=== PATIENT | male | born 1955 | race Caucasian/White ===

== ENCOUNTER 2025-02-15 06:52 | Inpatient (IN) | payer OTHER ==
[2025-02-15 07:29] LABS: #Basophils 0.04 10x3/uL (0.0-0.2); #Eosinophils 0.05 10x3/uL (0.0-0.5); #Monocytes 0.50 10x3/uL (0.0-1.1); #Neutrophils 6.30 10x3/uL (1.5-8.4); %Basophils 0.5 % (0.0-2.0); %Eosinophils 0.7 % (0.0-6.0); %Lymphocytes 6.9 % (18.0-47.0); %Monocytes 6.7 % (0.0-10.0); %Neutrophils 84.8 % (40.0-75.0); Hematocrit 36.9 % (38.8-50.0); Hemoglobin 12.0 g/dL (13.5-17.5); Mean Corpuscular Hemoglobin 30.9 pg (27.0-33.0); Mean Corpuscular Volume 95.1 fL (81.2-95.1); Platelet Count 161 10x3/uL (150-450); Red Blood Cell (RBC) Count 3.88 10x6/uL (4.32-5.72); White Blood Cell (WBC) Count 7.43 10x3/uL (3.5-10.5)
[2025-02-15] MEDS ORDERED: Furosemide 40 MG (4 mL) VIAL ONE (07:32)
[2025-02-15 08:02] LABS: Troponin I 0.134 ng/mL (< 0.028)
[2025-02-15 08:06] LABS: ALT (SGPT) 119 U/L (Less than 45); AST (SGOT) 157 U/L (11-34); Albumin 3.3 g/dL (3.1-4.5); Alkaline Phosphatase 165 U/L (40-110); Anion Gap 16 mmol/L (10-20); BUN (Urea Nitrogen) 37 mg/dL (8.4-25.7); Bilirubin, Total 0.8 mg/dL (0.3-1.2); Calc. Creatinine Clearance 0 mL/min (70-130); Calcium 8.6 mg/dL (7.8-10.44); Carbon Dioxide 24 mmol/L (23-31); Chloride 98 mmol/L (98-107); Globulin 2.6 g/dL (2.4-3.5); Sodium 131 mmol/L (136-145)
[2025-02-15 08:14] LABS: Glucose 451 mg/dL (80-115); Potassium 6.5 mmol/L (3.5-5.1)
[2025-02-15] MEDS ORDERED: cefTRIAXone (ROCEPHIN) 1 GM VIAL ONE (08:26)
[2025-02-15] MEDS ORDERED: Albuterol 2.5 MG (3 mL) NEB ONE (08:40)
[2025-02-15 08:49] LABS: Potassium 5.0 mmol/L (3.5-5.1)
[2025-02-15] MEDS ORDERED: Acetaminophen 325 MG TAB PO PRN (11:29)
[2025-02-15] MEDS ORDERED: Melatonin 3 MG TAB PO PRN (11:29)
[2025-02-15] MEDS ORDERED: Ondansetron PF 4 MG/2 ML Vial IVP PRN (11:29)
[2025-02-15] MEDS ORDERED: Electrolyte Replacement Protocol 1 EACH FS PRN (11:30)
[2025-02-15] MEDS ORDERED: Glucagon 1 MG/ML KIT IM PRN (11:35)
[2025-02-15] MEDS ORDERED: Dextrose 50% Abboject 50 ML SYRINGE SLOW IVP PRN (11:35)
[2025-02-15] MEDS: Furosemide 40 MG (4 mL) VIAL SLOW IVP SCH (14:51)
[2025-02-15 16:23] LABS: Anion Gap 12 mmol/L (10-20); BUN (Urea Nitrogen) 36 mg/dL (8.4-25.7); Calc. Creatinine Clearance 52 mL/min (70-130); Calcium 9.4 mg/dL (7.8-10.44); Carbon Dioxide 29 mmol/L (23-31); Chloride 96 mmol/L (98-107); Potassium 5.0 mmol/L (3.5-5.1); Sodium 132 mmol/L (136-145)
[2025-02-15 16:31] LABS: Troponin I 0.200 ng/mL (< 0.028)
[2025-02-15 16:43] LABS: Glucose 421 mg/dL (80-115)
[2025-02-15] MEDS: Lantus 1000 UNITS/10 ML VIAL SC SCH (17:10)
[2025-02-16 05:36] LABS: #Basophils 0.04 10x3/uL (0.0-0.2); #Eosinophils 0.08 10x3/uL (0.0-0.5); #Monocytes 0.51 10x3/uL (0.0-1.1); #Neutrophils 6.28 10x3/uL (1.5-8.4); %Basophils 0.5 % (0.0-2.0); %Eosinophils 1.0 % (0.0-6.0); %Lymphocytes 12.5 % (18.0-47.0); %Monocytes 6.4 % (0.0-10.0); %Neutrophils 79.2 % (40.0-75.0); Hematocrit 39.2 % (38.8-50.0); Hemoglobin 12.7 g/dL (13.5-17.5); Mean Corpuscular Hemoglobin 30.0 pg (27.0-33.0); Mean Corpuscular Volume 92.7 fL (81.2-95.1); Platelet Count 166 10x3/uL (150-450); Red Blood Cell (RBC) Count 4.23 10x6/uL (4.32-5.72); White Blood Cell (WBC) Count 7.93 10x3/uL (3.5-10.5)
[2025-02-16 05:54] LABS: ALT (SGPT) 87 U/L (Less than 45); AST (SGOT) 63 U/L (11-34); Albumin 3.3 g/dL (3.1-4.5); Alkaline Phosphatase 135 U/L (40-110); Anion Gap 17 mmol/L (10-20); BUN (Urea Nitrogen) 33 mg/dL (8.4-25.7); Bilirubin, Total 1.0 mg/dL (0.3-1.2); Calc. Creatinine Clearance 59 mL/min (70-130); Calcium 9.3 mg/dL (7.8-10.44); Carbon Dioxide 27 mmol/L (23-31); Chloride 99 mmol/L (98-107); Globulin 3.0 g/dL (2.4-3.5); Glucose 55 mg/dL (80-115); Magnesium 2.1 mg/dL (1.6-2.6); Potassium 4.2 mmol/L (3.5-5.1); Sodium 139 mmol/L (136-145)
[2025-02-16] MEDS ORDERED: Lantus 1000 UNITS/10 ML VIAL SC SCH ×2 (09:00)
[2025-02-16 09:08] LABS: Troponin I 0.142 ng/mL (< 0.028)
[2025-02-16] MEDS: Lantus 1000 UNITS/10 ML VIAL SC SCH ×2 (09:42→21:28)
[2025-02-16] MEDS: Amiodarone 200 MG TAB PO SCH (09:43)
[2025-02-16] MEDS: Ferrous Sulfate 325 MG TAB PO SCH (09:43)
[2025-02-16] MEDS: Aspirin 81 mg Enteric Coated Tablet PO SCH (09:43)
[2025-02-16 14:33] LABS: Free T4 (Free Thyroxine) 1.05 ng/dL (0.70-1.48); Thyroid Stimulating Hormone 23.8571 uIU/mL (0.35-4.94)
[2025-02-17 04:52] LABS: Anion Gap 12 mmol/L (10-20); BUN (Urea Nitrogen) 31 mg/dL (8.4-25.7); Calc. Creatinine Clearance 67 mL/min (70-130); Calcium 8.9 mg/dL (7.8-10.44); Carbon Dioxide 30 mmol/L (23-31); Cardiac Risk 2.3 (Less than 4.5); Chloride 99 mmol/L (98-107); Cholesterol 108 mg/dl (< 200 Desired); Glucose 201 mg/dL (80-115); HDL Cholesterol 47 mg/dL (>60 Neg Risk); Iron 54 ug/dL (65-175); Iron Binding Capacity, Total 256 mcg/dL (261-462); LDL Cholesterol, Calculated 52 mg/dL; Potassium 4.6 mmol/L (3.5-5.1); Sodium 136 mmol/L (136-145); Triglycerides 45 mg/dL (Less than 150)
[2025-02-17] MEDS: SODIUM CHLORIDE 0.9% IVPB SCH (09:26)
[2025-02-17] MEDS: SODIUM FERRIC GLUCONATE IVPB SCH (09:26)
[2025-02-17] MEDS: Furosemide 40 MG TAB PO SCH ×2 (09:26→21:22)
[2025-02-17] MEDS ORDERED: KETAMINE 100 MG/ML (5ML VIAL) ONE (15:50)
[2025-02-17] MEDS ORDERED: Lidocaine 1% PF 5 ML VIAL ONE (15:50)
[2025-02-17] MEDS ORDERED: Glycopyrrolate 0.2 MG/ML 5 ML SYRINGE ONE (15:50)
[2025-02-17] MEDS ORDERED: PHENYLEPHRINE-NS 100 MCG/ML 10 ML SYRINGE ONE (15:50)
[2025-02-17] MEDS ORDERED: PROPOFOL 200 MG/20 ML VIAL ONE (18:38)
[2025-02-17] MEDS ORDERED: Bupivacaine/Epinephrine 0.25% 30 ML VIAL ONE (19:16)
[2025-02-17] MEDS ORDERED: SUGAMMADEX SODIUM 200 MG/2 ML VIAL ONE (19:26)
[2025-02-17 20:58] LABS: ALT (SGPT) 55 U/L (Less than 45); AST (SGOT) 30 U/L (11-34); Albumin 3.5 g/dL (3.1-4.5); Alkaline Phosphatase 144 U/L (40-110); Bilirubin, Direct 0.7 mg/dL (0.1-0.3); Bilirubin, Total 1.5 mg/dL (0.3-1.2)
[2025-02-17] MEDS ORDERED: Vancomycin 1 GM in Premix 1 BAG IVPB SCH (21:00)
[2025-02-17] MEDS: Enoxaparin 80 MG (0.8 mL) SYRINGE SC SCH (21:22)
[2025-02-17] MEDS: Lantus 1000 UNITS/10 ML VIAL SC SCH (21:37)
[2025-02-17] MEDS: VANCOMYCIN 2 GRAM/400 ML BAG 2 GM in Premix 1 BAG IVPB SCH ×2 (21:45→21:50)
[2025-02-18 04:51] VITALS: BMI 23.3
[2025-02-18 05:15] LABS: Vancomycin, Random 27.4 ug/mL (See Comment)
[2025-02-18 05:36] LABS: ALT (SGPT) 53 U/L (Less than 45); AST (SGOT) 31 U/L (11-34); Albumin 3.6 g/dL (3.1-4.5); Alkaline Phosphatase 143 U/L (40-110); Anion Gap 21 mmol/L (10-20); BUN (Urea Nitrogen) 24 mg/dL (8.4-25.7); Bilirubin, Total 2.9 mg/dL (0.3-1.2); Calc. Creatinine Clearance 59 mL/min (70-130); Calcium 10.0 mg/dL (7.8-10.44); Carbon Dioxide 28 mmol/L (23-31); Chloride 95 mmol/L (98-107); Globulin 3.5 g/dL (2.4-3.5); Glucose 147 mg/dL (80-115); Iron 106 ug/dL (65-175); Iron Binding Capacity, Total 284 mcg/dL (261-462); Potassium 4.5 mmol/L (3.5-5.1); Sodium 139 mmol/L (136-145)
[2025-02-18] MEDS: Spironolactone 25 MG TAB PO SCH (08:48)
[2025-02-18] MEDS: Losartan 25 MG TAB PO SCH (08:48)
[2025-02-18] MEDS: Metoprolol Succinate XL 25 MG ER.TAB PO SCH (08:48)
[2025-02-18] MEDS ORDERED: Vancomycin 1.5 GRAM/300 ML BAG 1.5 GM in Premix 1 BAG IVPB SCH (09:00)
[2025-02-18] MEDS: VANCOMYCIN 1.25 GM/250 ML BAG 1.25 GM in Premix 1 BAG IVPB SCH (12:40)
[2025-02-19 04:06] LABS: #Basophils 0.06 10x3/uL (0.0-0.2); #Eosinophils 0.12 10x3/uL (0.0-0.5); #Monocytes 0.68 10x3/uL (0.0-1.1); #Neutrophils 5.10 10x3/uL (1.5-8.4); %Basophils 0.9 % (0.0-2.0); %Eosinophils 1.8 % (0.0-6.0); %Lymphocytes 9.1 % (18.0-47.0); %Monocytes 10.4 % (0.0-10.0); %Neutrophils 77.6 % (40.0-75.0); Hematocrit 40.3 % (38.8-50.0); Hemoglobin 13.5 g/dL (13.5-17.5); Mean Corpuscular Hemoglobin 30.6 pg (27.0-33.0); Mean Corpuscular Volume 91.4 fL (81.2-95.1); Platelet Count 214 10x3/uL (150-450); Red Blood Cell (RBC) Count 4.41 10x6/uL (4.32-5.72); White Blood Cell (WBC) Count 6.57 10x3/uL (3.5-10.5)
[2025-02-19 04:27] LABS: ALT (SGPT) 32 U/L (Less than 45); AST (SGOT) 18 U/L (11-34); Albumin 2.9 g/dL (3.1-4.5); Alkaline Phosphatase 123 U/L (40-110); Anion Gap 16 mmol/L (10-20); BUN (Urea Nitrogen) 30 mg/dL (8.4-25.7); Bilirubin, Total 3.0 mg/dL (0.3-1.2); Calc. Creatinine Clearance 47 mL/min (70-130); Calcium 8.7 mg/dL (7.8-10.44); Carbon Dioxide 30 mmol/L (23-31); Chloride 93 mmol/L (98-107); Globulin 3.0 g/dL (2.4-3.5); Glucose 264 mg/dL (80-115); Potassium 4.0 mmol/L (3.5-5.1); Sodium 135 mmol/L (136-145)
[2025-02-19 22:43] VITALS: BP 105/51; TEMP 98.3
== END 2025-02-19 10:37 | disposition home or self-care (01) | DRG 280 ==
LOC: CSHERS 06:52 → EEVIPCON 06:52 → CSHTELE 10:09
PROVIDERS: ADMIT Student in an Organized Health Care Education/Training Program; ATTEND Family Medicine
PROC: B24BZZ4 Ultrasonography of Heart with Aorta, Transesophageal (ICD-10-PCS; principal; 2025-02-17)
PROC: 3E03329 Introduction of Other Anti-infective into Peripheral Vein, Percutaneous Approach (ICD-10-PCS; 2025-02-17)
DX: I13.0 Hypertensive heart and chronic kidney disease with heart failure and stage 1 through stage 4 chronic kidney disease, or unspecified chronic kidney disease (principal); I33.9 Acute and subacute endocarditis, unspecified; I21.A1 Myocardial infarction type 2; I50.23 Acute on chronic systolic (congestive) heart failure; N17.9 Acute kidney failure, unspecified; E10.9 Type 1 diabetes mellitus without complications; E78.5 Hyperlipidemia, unspecified; I25.10 Atherosclerotic heart disease of native coronary artery without angina pectoris; I48.91 Unspecified atrial fibrillation; E03.9 Hypothyroidism, unspecified; N18.30 Chronic kidney disease, stage 3 unspecified; K22.2 Esophageal obstruction; I34.0 Nonrheumatic mitral (valve) insufficiency; D63.1 Anemia in chronic kidney disease; Z95.1 Presence of aortocoronary bypass graft; Z98.890 Other specified postprocedural states; Z90.79 Acquired absence of other genital organ(s); Z79.899 Other long term (current) drug therapy; Z79.82 Long term (current) use of aspirin; Z79.4 Long term (current) use of insulin; Z79.890 Hormone replacement therapy; Z79.01 Long term (current) use of anticoagulants; Z95.2 Presence of prosthetic heart valve
CPT/HCPCS: 36415; 36416; 71045; 80048; 80053; 80061; 80076; 80202; 82728; 83540; 83550; 83735; 83880; 84100; 84439; 84443; 84484; 85025; 86140; 87040; 93005; 93010; 93306; 93312; 94760; 94762; 96365; 96375; J0692; J0696; J1650; J1815; J1940; J2250; J2704; J2916; J3373; J3375; J7050; J7611